=== PATIENT | female | born 1995 | race Two or more races ===

== ENCOUNTER 2020-04-11 00:35 | Emergency (ER) | payer OTHER ==
[~2020-04-11] VITALS: Ht 162.6 cm; Wt 55.3 kg
[2020-04-11] MEDS ORDERED: ZOFRAN8 MG PO (03:22)
[2020-04-11] MEDS ORDERED: PEPCID40 MG PO (03:22)
== END 2020-04-11 03:43 | disposition home or self-care (01) ==
LOC: ER 00:35
DX: K29.20 Alcoholic gastritis without bleeding (principal)